=== PATIENT | male | born 1970 | race American Indian/Alaskan Native ===

== ENCOUNTER 2017-10-22 06:38 | Emergency (ER) | payer OTHER ==
[~2017-10-22] VITALS: Ht 170.2 cm; Wt 86.0 kg
[2017-10-22] MEDS ORDERED: CYCL-1 PO (07:07)
[2017-10-22] MEDS ORDERED: ketorolac trometh inj. 60 MG/2 ML VIAL IM ONE (07:10)
[2017-10-22 07:21] VITALS: BP 146/73
== END 2017-10-22 07:26 | disposition home or self-care (01) ==
LOC: ER 06:39
DX: M54.5 Low back pain (principal); G89.29 Other chronic pain; F17.210 Nicotine dependence, cigarettes, uncomplicated; F12.90 Cannabis use, unspecified, uncomplicated
CPT/HCPCS: 96372; 99284; J1885